=== PATIENT | female | born 1955 | race Two or more races ===

== ENCOUNTER 2024-06-27 11:32 | Emergency (ER) | payer OTHER ==
[~2024-06-27] VITALS: Ht 154.9 cm; Wt 58.5 kg
[2024-06-27] MEDS ORDERED: JARDIANCE25 MG (12:18)
[2024-06-27] MEDS ORDERED: SALINE NASAL SP44 ML NASAL (12:44)
[2024-06-27] MEDS ORDERED: ACETAMINOPHEN 500 MG GEL..CAP PO ONE ×2 (12:45→12:54)
== END 2024-06-27 12:59 | disposition home or self-care (01) ==
LOC: ER 11:34
DX: S09.8XXA Other specified injuries of head, initial encounter (principal); W19.XXXA Unspecified fall, initial encounter; Y93.89 Activity, other specified; Y92.89 Other specified places as the place of occurrence of the external cause; Y99.8 Other external cause status; R04.0 Epistaxis; E11.9 Type 2 diabetes mellitus without complications; Z88.0 Allergy status to penicillin

== ENCOUNTER 2025-04-02 16:21 | Emergency (ER) | payer OTHER ==
[~2025-04-02] VITALS: Ht 152.4 cm; Wt 53.5 kg
[~2025-04-02 16:21] MED LIST: JARDIANCE25 MG; SALINE NASAL SP44 ML NASAL
[2025-04-02 17:43] VITALS: BP 109/64; O2SAT 99
[2025-04-02] MEDS ORDERED: GLIPIZIDE ER2.5 MG PO (17:47)
[2025-04-02] MEDS ORDERED: XARELTO10 MG PO (17:48)
[2025-04-02] MEDS ORDERED: COZAAR25 MG PO (17:48)
[2025-04-02] MEDS ORDERED: CRESTOR40 MG PO (17:49)
[2025-04-02] MEDS ORDERED: ORPHENADRINE CITRATE 30 MG/ML AMPUL IM ONE (19:00)
[2025-04-02] MEDS ORDERED: INSULIN REGULAR, HUMAN 1,000 UNIT/10 ML UNITS SUBCUTANEO ONE (19:00)
[2025-04-02] MEDS ORDERED: KETOROLAC TROMETHAMINE 30 MG VIAL IM ONE (19:00)
[2025-04-02] MEDS ORDERED: KETOROLAC TROMETHAMINE 30 MG VIAL ONE (19:03)
[2025-04-02] MEDS ORDERED: ORPHENADRINE CITRATE 30 MG/ML AMPUL ONE (19:03)
[2025-04-03] MEDS ORDERED: ZANAFLEX4 MG PO (01:04)
[2025-04-03] MEDS ORDERED: KETO10TA2 PO (01:04)
[2025-04-03] MEDS ORDERED: PEPCID AC20 MG PO (01:04)
== END 2025-04-03 01:13 | disposition home or self-care (01) ==
LOC: ER 16:21
DX: S82.292A Other fracture of shaft of left tibia, initial encounter for closed fracture (principal); Z88.0 Allergy status to penicillin; I10 Essential (primary) hypertension; E11.9 Type 2 diabetes mellitus without complications; Z79.84 Long term (current) use of oral hypoglycemic drugs; S82.492A Other fracture of shaft of left fibula, initial encounter for closed fracture

== ENCOUNTER 2025-04-04 06:47 | Outpatient (CLI) | payer OTHER ==
[~2025-04-04 06:47] MED LIST changes: +COZAAR25 MG PO; +CRESTOR40 MG PO; +GLIPIZIDE ER2.5 MG PO; +KETO10TA2 PO; +PEPCID AC20 MG PO; +XARELTO10 MG PO; +ZANAFLEX4 MG PO
[2025-04-04 07:34] LABS: BASO % 0.5 % (0.1-1.2); EOS # 0.32 (0.04-0.54); EOS % 3.0 % (0.7-7.0); LYMPH # 2.53 (1.18-3.74); LYMPH % 23.8 % (19.3-53.1); MEAN PLATELET VOLUME 9.90 fl (9.4-12.4); MONO # 0.89 (0.24-0.82); MONO % 8.4 % (4.7-12.5); NEUT # 6.82 (1.56-6.13); NEUT % 64.1 % (34.0-71.1); RED CELL DISTRIBUTION WIDTH 13.2 % (11.6-14.4)
[2025-04-04 07:56] LABS: URINE APPEARANCE Cloudy; URINE BILIRRUBIN Negative (NEGATIVE); URINE BLOOD Small; URINE COLOR Yellow; URINE KETONE Trace (NEGATIVE); URINE LEUKOCYTE Moderate; URINE NITRATE Negative; URINE UROBILINOGEN 1.0 E.U./dl
[2025-04-04 08:00] LABS: URINE CAST 3.22 uL (0.0-1.40); URINE RBC 7.1 uL (0.0-20.8)
[2025-04-04 08:06] LABS: COL ADP 77.0 SECONDS (56-102); COL EPI 116.0 SECONDS (82-175)
[2025-04-04 08:07] LABS: INR 1.16
[2025-04-04 08:12] LABS: URINE EPITHELIAL CELLS 1.3 uL (0.0-38.8); URINE GLUCOSE >=1000 MG/DL (NEGATIVE); URINE PROTEIN 100 (NEGATIVE)
[2025-04-04 08:13] LABS: URINE BACTERIA > 9821.5 uL (0.0-1933)
[2025-04-04 08:16] LABS: ALT/SGPT 34.0 U/L (12-78); AST/SGOT 21.0 U/L (15-37); BILIRUBIN TOTAL 0.57 mg/dL (0.3-1.2); BUN CREA RATIO 23.0 (7.0-25.0); CREATININE SERUM 0.99 mg/dL (0.55-1.02); GFR 55.78; GLOBULINA 3.4 G/DL (2.4-3.5); GLUCOSE FASTING 87.0 mg/dL (65-100); OSMOLALITY SERUM 288.0 MOSM/KG (275-295)
== END 2025-04-04 09:17 | disposition home or self-care (01) ==
LOC: RAD 06:47 → CIR.AMB 09:13 → RAD 09:13
PROVIDERS: ATTEND Orthopaedic Surgery
DX: D64.9 Anemia, unspecified (principal); E88.9 Metabolic disorder, unspecified; D68.8 Other specified coagulation defects; N39.0 Urinary tract infection, site not specified; Z22.322 Carrier or suspected carrier of Methicillin resistant Staphylococcus aureus; E11.9 Type 2 diabetes mellitus without complications; I10 Essential (primary) hypertension; Z76.89 Persons encountering health services in other specified circumstances

== ENCOUNTER 2025-04-07 07:00 | Day surgery (SDC) | payer OTHER ==
[2025-04-04 10:14] VITALS: BP 104/69
[~2025-04-07] VITALS: Ht 152.4 cm; Wt 52.6 kg
[2025-04-07] MEDS ORDERED: CEFAZOLIN SODIUM 1,000 MG VIAL ONE (08:34)
[2025-04-07] MEDS ORDERED: CIPROFLOXACIN IN 5 % DEXTROSE 400 MG/200 ML PIGGYBAG IV ONE ×2 (10:00→10:24)
== END 2025-04-07 16:35 | disposition home or self-care (01) ==
LOC: CIR.AMB 07:00
PROVIDERS: ATTEND Orthopaedic Surgery
DX: S82.852A Displaced trimalleolar fracture of left lower leg, initial encounter for closed fracture (principal)
CPT/HCPCS: 27823; L8699

== ENCOUNTER 2025-04-30 07:03 | Outpatient (CLI) | payer OTHER | END 2025-04-30 07:05 | disposition home or self-care (01) | LOC: RAD 07:03 | PROVIDERS: ATTEND Orthopaedic Surgery | DX: S82.852D Displaced trimalleolar fracture of left lower leg, subsequent encounter for closed fracture with routine healing (principal); S93.431D Sprain of tibiofibular ligament of right ankle, subsequent encounter; X58.XXXD Exposure to other specified factors, subsequent encounter ==

== ENCOUNTER 2025-05-20 07:05 | Outpatient (CLI) | payer OTHER | END 2025-05-20 07:10 | disposition home or self-care (01) | LOC: RAD 07:05 | PROVIDERS: ATTEND Orthopaedic Surgery | DX: S82.852D Displaced trimalleolar fracture of left lower leg, subsequent encounter for closed fracture with routine healing (principal); S93.431D Sprain of tibiofibular ligament of right ankle, subsequent encounter ==